=== PATIENT | male | born 1985 | race Caucasian/White ===

== ENCOUNTER 2018-01-09 23:39 | Observation (INO) | payer MEDICAID ==
[~2018-01-09] VITALS: Ht 180.3 cm; Wt 86.2 kg
[2018-01-10 01:11] LABS: Basophils # (auto) 0.1 uL; Basophils % (auto) 0.6 % (0.0-2.0); Eosinophils # (auto) 0.1 uL; Eosinophils % (auto) 0.6 % (0.0-7.0); Hematocrit 45.4 % (41.0-53.0); Hemoglobin 15.3 g/dL (13.5-17.5); Lymphocytes # (auto) 3.7 uL; Lymphocytes % (auto) 29.3 % (10.0-50.0); Mean Corpuscular Hemoglobin 29.6 pg (28.0-32.0); Mean Corpuscular Hgb Conc. 33.8 g/dL (32.0-36.0); Mean Corpuscular Volume 87.7 fL (80.0-100.0); Monocytes # (auto) 0.8 uL; Monocytes % (auto) 6.4 % (0.0-12.0); Neutrophils # (auto) 7.9 uL; Neutrophils % (auto) 63.1 % (37.0-80.0); Nucleated Red Blood Cells % 0.2 %; Platelet Count (auto) 200 10^3/uL (140-450); Red Blood Cells 5.18 10^6/uL (4.5-5.90); Red Cell Distribution Width 12.4 % (11.8-14.3); White Blood Cell 12.6 10^3/uL (4.4-10.8)
[2018-01-10 01:28] LABS: Acetaminophen < 2.0 ug/mL (10-30); Salicylate 2.4 mg/dL (2.8-20.0)
[2018-01-10 01:30] LABS: Alanine Aminotransferase 33 U/L (16-61); Albumin 3.7 g/dL (3.4-5.0); Anion Gap 9 (5-15); Aspartate Aminotransferase 14 U/L (15-37); BUN/Creatinine Ratio 9.2; Blood Alcohol < 3.0 mg/dL (0-5); Blood Urea Nitrogen 11 mg/dL (7-18); Calcium 8.7 mg/dL (8.5-10.1); Carbon Dioxide 24 mmol/L (21-32); Chloride 108 mmol/L (98-107); GFR African American 92 mL/min; GFR Non-African American 76 mL/min; Glucose 87 mg/dL (74-106); Potassium 3.5 mmol/L (3.5-5.1); Sodium 141 mmol/L (136-145)
[2018-01-10 01:33] LABS: Alkaline Phosphatase 88 U/L (45-117); Bilirubin, Total 0.6 mg/dL (0.2-1.0); Total Protein 7.2 g/dL (6.4-8.2)
[2018-01-10 03:20] LABS: Urine Bacteria NONE SEEN /hpf (None Seen); Urine Blood Negative /uL (Negative); Urine Mucus FEW (None Seen); Urine Specific Gravity 1.015 (1.001-1.035); Urine WBC 1 /hpf (0 - 3)
[2018-01-10 03:32] LABS: Alcohol, Urine < 3.0 mg/dL (0-5); Amphetamine Screen, Urine NEGATIVE (NEGATIVE); Barbiturate Scree,Urine NEGATIVE (NEGATIVE); Benzodiazephine Screen, Urine NEGATIVE (NEGATIVE); Cannabinoid Screen, Urine POSITIVE (NEGATIVE); Cocaine Screen, Urine NEGATIVE (NEGATIVE); Opiate Scree,Urine NEGATIVE (NEGATIVE); Phencyclidine Screen, Urine NEGATIVE (NEGATIVE)
[2018-01-10] MEDS ORDERED: LIDOCAINE 1%HCL (LOCAL ANESTH) 10 ML MDV ONE (04:18)
[2018-01-10] MEDS ORDERED: LIDOCAINE 1% HCL (LOCAL ANESTH.) INJ 20ML MDV ID ONE (04:45)
[2018-01-10] MEDS ORDERED: NEOMYCIN-BACITRACIN-POLYM 15GM TOP OINT TOP ONE (05:40)
[2018-01-10] MEDS ORDERED: buPROPion HCL 75 MG TAB PO SCH (10:00)
[2018-01-10] MEDS ORDERED: WELLBUTRIN 150 MG PO SCH (10:00)
[2018-01-10 18:03] VITALS: BP 108/66
== END 2018-01-10 18:07 | disposition home or self-care (01) | DRG 384 ==
LOC: ER 23:43 → OVERFLOW 23:44 → ER 01-10 18:07
PROVIDERS: ADMIT Emergency Medicine; ATTEND Emergency Medicine
DX: S61.511A Laceration without foreign body of right wrist, initial encounter (principal); F20.9 Schizophrenia, unspecified; S61.512A Laceration without foreign body of left wrist, initial encounter; F31.9 Bipolar disorder, unspecified; F41.9 Anxiety disorder, unspecified; F17.210 Nicotine dependence, cigarettes, uncomplicated
CPT/HCPCS: 12002; 36415; 71045; 80053; 80307; 80320; 80329; 81001; 85025; 93005; G0378

== ENCOUNTER → 2019-10-27 | Emergency (ER) | payer MEDICAID ==
[~2019-10-27] VITALS: Ht 182.9 cm; Wt 90.7 kg
[2019-10-27 17:24] LABS: Amphetamine Screen, Urine NEGATIVE (NEGATIVE); Barbiturate Scree,Urine NEGATIVE (NEGATIVE); Benzodiazephine Screen, Urine NEGATIVE (NEGATIVE); Cannabinoid Screen, Urine POSITIVE (NEGATIVE); Cocaine Screen, Urine NEGATIVE (NEGATIVE); Opiate Scree,Urine NEGATIVE (NEGATIVE); Phencyclidine Screen, Urine NEGATIVE (NEGATIVE)
[2019-10-27 17:44] LABS: Alcohol, Urine < 3.0 mg/dL (0-10)
[2019-10-27 17:56] LABS: Acetaminophen < 2.0 ug/mL (10-30); Salicylate 4.8 mg/dL (2.8-20.0)
[2019-10-27 21:08] VITALS: BP 122/83
== END | disposition home or self-care (01) ==
LOC: ER 15:08
DX: R45.851 Suicidal ideations (principal); F17.210 Nicotine dependence, cigarettes, uncomplicated; F32.9 Major depressive disorder, single episode, unspecified; F41.9 Anxiety disorder, unspecified
CPT/HCPCS: 36415; 71045; 80307; 80320; 80329

== ENCOUNTER 2021-06-11 15:54 | Emergency (ER) | payer MEDICAID ==
[~2021-06-11] VITALS: Ht 182.9 cm; Wt 95.3 kg
[2021-06-11] MEDS ORDERED: ASPirin 81 mg TAB PO ONE (16:00)
[2021-06-11] MEDS ORDERED: LORazepam 0.5 MG TAB PO ONE (16:45)
[2021-06-11 18:22] LABS: Basophils # (auto) 0.1 10 ^3/uL (0-0.2); Basophils % (auto) 0.7 % (0.0-2.0); Eosinophils # (auto) 0.3 10 ^3/uL (0-0.8); Eosinophils % (auto) 2.6 % (0.0-7.0); Hematocrit 38.4 % (41.0-53.0); Lymphocytes # (auto) 3.1 10 ^3/uL (0.4-5.4); Mean Corpuscular Hemoglobin 27.9 pg (28.0-32.0); Mean Corpuscular Volume 82.1 fL (80.0-100.0); Monocytes # (auto) 0.7 10 ^3/uL (0-1.3); Monocytes % (auto) 5.9 % (0.0-12.0); Neutrophils # (auto) 7.1 10 ^3/uL (1.6-8.6); Neutrophils % (auto) 62.8 % (37.0-80.0); Nucleated Red Blood Cells % 0.4 %; Red Blood Cells 4.68 10^6/uL (4.5-5.90); Red Cell Distribution Width 13.6 % (11.8-14.3); White Blood Cell 11.2 10^3/uL (4.4-10.8)
[2021-06-11 18:34] LABS: Chloride 107 mmol/L (98-107); Sodium 139 mmol/L (136-145)
[2021-06-11 18:38] LABS: Alanine Aminotransferase 32 U/L (16-61); Albumin 2.9 g/dL (3.4-5.0); Anion Gap 4 (5-15); Aspartate Aminotransferase 15 U/L (15-37); BUN/Creatinine Ratio 11.5; Bilirubin, Total 0.2 mg/dL (0.2-1.0); Blood Urea Nitrogen 15 mg/dL (7-18); Calcium 9.1 mg/dL (8.5-10.1); Carbon Dioxide 28 mmol/L (21-32); GFR African American 81 mL/min; GFR Non-African American 67 mL/min; Glucose 83 mg/dL (74-106); Total Protein 7.9 g/dL (6.4-8.2)
[2021-06-11 18:43] LABS: Alkaline Phosphatase 117 U/L (45-117)
[2021-06-11 18:43] LABS: Urine Bacteria NONE SEEN /hpf (None Seen); Urine Blood 1+ /uL (Negative); Urine Specific Gravity 1.021 (1.001-1.035); Urine WBC 1 /hpf (0 - 3)
[2021-06-11 18:54] LABS: Alcohol, Urine < 3.0 mg/dL (0-10); Amphetamine Screen, Urine NEGATIVE (NEGATIVE); Barbiturate Scree,Urine NEGATIVE (NEGATIVE); Benzodiazephine Screen, Urine NEGATIVE (NEGATIVE); Cannabinoid Screen, Urine POSITIVE (NEGATIVE); Cocaine Screen, Urine NEGATIVE (NEGATIVE); Opiate Scree,Urine NEGATIVE (NEGATIVE); Phencyclidine Screen, Urine NEGATIVE (NEGATIVE)
[2021-06-11 21:13] VITALS: BP 120/89
== END 2021-06-11 21:15 | disposition home or self-care (01) ==
LOC: ER 15:54
DX: R07.89 Other chest pain (principal); F41.9 Anxiety disorder, unspecified; F17.210 Nicotine dependence, cigarettes, uncomplicated
CPT/HCPCS: 36415; 70450; 72125; 80053; 80307; 81001; 84443; 84484; 85025; 93005

== ENCOUNTER 2022-05-14 14:55 | Outpatient (CLI) | payer OTHER ==
[~2022-05-14] VITALS: Ht 182.9 cm; Wt 72.6 kg
[2022-05-14] MEDS ORDERED: OMEP20TA PO (15:07)
[2022-05-14] MEDS ORDERED: HYDRX10T PO (15:07)
[2022-05-14] MEDS ORDERED: SERT50TA PO (15:07)
[2022-05-14] MEDS ORDERED: PRA1C PO (15:07)
[2022-05-14] MEDS ORDERED: ISOS5TAB PO (15:07)
[2022-05-14] MEDS ORDERED: QUET50TA PO (15:13)
== END 2022-05-14 15:21 | disposition home or self-care (01) ==
LOC: LAB 14:55 → EDSTATUS 05-17 15:09
PROVIDERS: ATTEND Internal Medicine
DX: U07.1 COVID-19 (principal)